=== PATIENT | female | born 1980 | race Caucasian/White ===

== ENCOUNTER 2016-05-10 21:29 | Emergency (ER) | payer OTHER ==
[~2016-05-10] VITALS: Ht 165.1 cm; Wt 65.8 kg
[~2016-05-10 21:29] MED LIST: CELEXA20 MG PO; COUMADIN 2 MG TA2 M1 PO; COUMADIN 5 MG TA5 M1 PO; ENOXAPARIN80 MG/0.1 SUBQ; HYDROCODONE-AP1 EAC6 PO; IBUPROFEN 200200 M1 PO; IBUPROFEN 600600 M1 PO; MULTIVITAMINS1 EAC7 PO; ONE DAILY1 EAC2 PO; TRETINOIN20 G2; XANAX 0.25 MG0.25 MG PO
== END 2016-05-10 23:17 | disposition home or self-care (01) ==
LOC: ER 21:29
DX: M25.571 Pain in right ankle and joints of right foot (principal); M25.561 Pain in right knee; M25.562 Pain in left knee; J45.909 Unspecified asthma, uncomplicated; F32.9 Major depressive disorder, single episode, unspecified; Z90.89 Acquired absence of other organs; Z90.710 Acquired absence of both cervix and uterus; Z87.891 Personal history of nicotine dependence; Z88.5 Allergy status to narcotic agent; X50.1XXA Overexertion from prolonged static or awkward postures, initial encounter; Y93.89 Activity, other specified; Y92.89 Other specified places as the place of occurrence of the external cause; Y99.9 Unspecified external cause status

== ENCOUNTER 2019-10-18 15:46 | Emergency (ER) | payer OTHER ==
[~2019-10-18] VITALS: Ht 167.6 cm; Wt 72.6 kg
[2019-10-18 16:01] LABS: ABSOLUTE NEUTROPHILS 7.8 thou/uL (1.4-8.2); BASOPHILS 0.3 % (0.0-2.0); EOSINOPHILS 0.1 % (0.0-3.0); HEMATOCRIT 43.1 % (37.0-47.0); HEMOGLOBIN 14.7 gm/dL (12.0-15.0); LYMPHOCYTES 9.9 % (24.0-44.0); MCH 31.6 pg (26.0-34.0); MCV 92.9 fL (80.0-100.0); MONOCYTES 4.2 % (1.0-8.0); PLATELET COUNT 265 thou/uL (150-400); POLYS 85.5 % (36.0-66.0); RBC 4.64 mil/uL (4.20-5.00); RDW 13.1 % (10.5-14.5); WBC 9.2 thou/uL (4.0-11.0)
[2019-10-18 16:10] LABS: CALCIUM 9.2 mg/dL (8.5-10.1); CREATININE 0.8 mg/dL (0.6-1.0); POTASSIUM 3.9 mmol/L (3.5-5.1)
[2019-10-18 16:24] LABS: ALBUMIN 4.2 g/dL (3.4-5.0); TOTAL BILIRUBIN 0.6 mg/dL (0.2-1.0); TOTAL PROTEIN 7.8 g/dL (6.4-8.2)
[2019-10-18 18:26] LABS: URINE BILIRUBIN NEGATIVE (Negative); URINE BLOOD TRACE (Negative); URINE CLARITY CLEAR; URINE COLOR YELLOW; URINE GLUCOSE-RANDOM* NEGATIVE (Negative); URINE KETONES 2+ (Negative); URINE LEUKOCYTES-REFLEX NEGATIVE (Negative); URINE NITRITE-REFLEX NEGATIVE (Negative); URINE PROTEIN (DIPSTICK) NEGATIVE (Negative); URINE SPECIFIC GRAVITY >= 1.030 (1.005-1.035); URINE UROBILINOGEN 0.2 E.U./dl (0.2-1.0)
[2019-10-18] MEDS ORDERED: NORCO 5-325 TA1 EAC1 PO (18:34)
[2019-10-18] MEDS ORDERED: ZOFRAN ODT4 MG PO (18:34)
[2019-10-18 18:51] VITALS: BP 107/58
== END 2019-10-18 18:51 | disposition home or self-care (01) ==
LOC: ER 15:46
PROVIDERS: Emergency Medicine; Nurse Practitioner Family
DX: N83.202 Unspecified ovarian cyst, left side (principal); R11.2 Nausea with vomiting, unspecified; R10.32 Left lower quadrant pain; Z87.891 Personal history of nicotine dependence; Z88.5 Allergy status to narcotic agent; Z79.899 Other long term (current) drug therapy; Z79.01 Long term (current) use of anticoagulants; Z90.710 Acquired absence of both cervix and uterus

== ENCOUNTER 2020-01-01 16:31 | Emergency (ER) | payer OTHER ==
[~2020-01-01] VITALS: Ht 167.6 cm; Wt 72.6 kg
[~2020-01-01 16:31] MED LIST changes: +NORCO 5-325 TA1 EAC1 PO; +ZOFRAN ODT4 MG PO
[2020-01-01 17:21] LABS: ABSOLUTE NEUTROPHILS 4.4 thou/uL (1.4-8.2); BASOPHILS 0.7 % (0.0-2.0); EOSINOPHILS 0.8 % (0.0-3.0); HEMATOCRIT 40.1 % (37.0-47.0); HEMOGLOBIN 13.7 gm/dL (12.0-15.0); LYMPHOCYTES 28.6 % (24.0-44.0); MCH 31.2 pg (26.0-34.0); MCHC 34.2 g/dL (28.0-37.0); MCV 91.2 fL (80.0-100.0); MONOCYTES 9.7 % (1.0-8.0); PLATELET COUNT 236 thou/uL (150-400); POLYS 60.2 % (36.0-66.0); RDW 12.7 % (10.5-14.5); WBC 7.3 thou/uL (4.0-11.0)
[2020-01-01 17:33] LABS: ANION GAP 11 mmol/L (7-16); BUN 19 mg/dL (7-18); CALCIUM 9.2 mg/dL (8.5-10.1); CHLORIDE 103 mmol/L (98-107); CO2 26 mmol/L (21-32); CREATININE 0.8 mg/dL (0.6-1.0); GLUCOSE 97 mg/dL (74-106); SODIUM 140 mmol/L (136-145)
[2020-01-01 17:44] LABS: ALBUMIN 3.7 g/dL (3.4-5.0); MAGNESIUM 1.9 mg/dL (1.8-2.4); SGOT 21 U/L (15-37); SGPT 76 U/L (30-65); TOTAL BILIRUBIN 0.3 mg/dL (0.2-1.0); TOTAL PROTEIN 7.2 g/dL (6.4-8.2); TROPONIN-I <0.06 ng/mL (<0.06)
[2020-01-01] MEDS ORDERED: MEDROLDOSEPACK PO (19:00)
[2020-01-01] MEDS ORDERED: LOTRIMIN ULTRA12 GM TP (19:00)
[2020-01-01 19:15] VITALS: BP 122/74
--- NOTE | 2020-01-02 08:46 | EKG ---
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 : 1980 Requested By: Maribell Rogers Order Number: [id number] MD: Lance Anderson Measurements Intervals [place] Rate: 69 P: 32 AK: 247 QRS: 56 QRSD: 93 T: 54 QT: 394 QTc: 422 Interpretive Statements Sinus rhythm Prolonged AK interval RSR' in V1 or V2, probably normal variant Compared to ECG 02/19/2014 17:50:26 Low QRS voltage now present RSR' in V1 or V2 now present Sinus bradycardia no longer present Electronically Signed On 01-02-2020 8:46:00 CDT by Lance Anderson [email or web address] <ELECTRONICALLY SIGNED> By: Lance Anderson MD, FACC 01/02/20 [id number] Lance Anderson MD, LOCATED WITHIN [facility] /EPI
== END 2020-01-01 19:15 | disposition home or self-care (01) ==
LOC: ER 16:31
PROVIDERS: Nurse Practitioner Family
DX: R06.00 Dyspnea, unspecified (principal); R07.9 Chest pain, unspecified; R09.81 Nasal congestion; J45.909 Unspecified asthma, uncomplicated; F32.9 Major depressive disorder, single episode, unspecified; Z86.711 Personal history of pulmonary embolism; Z90.711 Acquired absence of uterus with remaining cervical stump; Z79.899 Other long term (current) drug therapy; Z88.5 Allergy status to narcotic agent; Z87.891 Personal history of nicotine dependence